=== PATIENT | female | born 1990 | race Caucasian/White ===

== ENCOUNTER 2018-08-08 00:46 | Emergency (ER) | payer SELFPAY ==
[2018-08-08 02:45] VITALS: BMI 29.2
[2018-08-08] MEDS ORDERED: DIPHTH,PERTUSS(ACELL),TET 0.5 ML DISP.SYRIN IM ONE ×2 (03:24→03:33)
[2018-08-08] MEDS ORDERED: CEFAZOLIN 1 GM/D5W 1 GM/50 ML BAG IVPB ONE (03:24)
--- NOTE | 2018-08-08 03:24 | PDOC ---
Attending Attestation - Resident Resident Name: Igor Arauz - ED Attending Attestation I have performed the following: I have examined & evaluated the patient, The case was reviewed & discussed with the resident, I agree w/resident's findings & plan - HPI HPI: 08/08/18 06:45 Pt cut her finger accidentally while she was cutting chicken last night. - Physicial Exam PE: 08/08/18 06:45 Agree with resident exam. - Medical Decision Making 08/08/18 04:37 We ran out of suture kits and pt is upset. She is upset that she has to wait. Pt doesn't want to get an IV for a dose of abx (she was cutting meat hours ago and cliced her finger.) Pt is awaiting suture kit to come from [facility]. 08/08/18 06:46 Finger closed with 3 sutures. She will return in 7-10 days for the removal of stitches; sooner for a wound check, or if the finger gets red and inflamed. 08/08/18 06:47 Keflex for prophylaxis.
[2018-08-08] MEDS ORDERED: CEFAZOLIN 1 GM/D5W 1 GM/50 ML BAG ONE (03:32)
--- NOTE | 2018-08-08 04:20 | PDOC ---
History of Present Illness <John Amaya - Last Filed: 08/08/18 05:56> - General History Source: Patient Exam Limitations: No Limitations - History of Present Illness Initial Comments: 08/08/18 04:14 28 yo female pmh DM type 1 and hypothyroidism presents to the ED after accidentally cutting her right index finger with a pair of kitchen scissors used to cut chicken around 1 am. Last Tetanus unknown. Homeostasis achieved with holding pressure. No nail bed involvement, denies weakness or sensory changes in the right hand but has pain with flexion at the DIP <Igor Arauz - Last Filed: 08/08/18 06:27> - General Chief Complaint: Injury Stated Complaint: INJURY,RT FINGER Time Seen by Provider: 08/08/18 02:50 Past History <John Amaya - Last Filed: 08/08/18 05:56> - Past Medical History Anemia: No Asthma: No Cancer: No Cardiac Disorders: No CVA: No COPD: No CHF: No Dementia: No Diabetes: Yes (IDDM DX 1999) GI Disorders: No Disorders: No HTN: No Hypercholesterolemia: No Liver Disease: No Seizures: No Thyroid Disease: Yes (HYPOTHROIDISM DX 2001) - Immunization History Immunization Up to Date: Yes - Suicide/Smoking/Psychosocial Hx Smoking Status: Yes Smoking History: Current some day smoker Have you smoked in the past 12 months: Yes Number of Cigarettes Smoked Daily: 12 Information on smoking cessation initiated: No 'Breaking Loose' booklet given: 01/23/12 Hx Alcohol Use: No Drug/Substance Use Hx: No Substance Use Type: Alcohol Hx Substance Use Treatment: No <Igor Arauz - Last Filed: 08/08/18 06:27> - Past Medical History Allergies/Adverse Reactions: Allergies Allergy/AdvReac Type Severity Reaction Status Date / Time codeine [Codeine] Allergy Severe HALLUCINATI Verified 08/08/18 03:09 ONS Home Medications: Ambulatory Orders Insulin Lispro [Humalog] 5 units SQ PRN PRN 12/16/11 Insulin NPH [Novolin N Vial -] 19 units SQ AM 12/16/11 Levothyroxine [Synthroid] 175 mcg PO DAILY 12/16/11 Multivitamins 1 tab PO DAILY 12/16/11 Pyridoxine HCl [Vitamin B6] 100 mg PO DAILY 12/16/11 Vit B12/Pyridoxine/Thiamine [Pv Neuro [place] Tablet] 1 tab PO DAILY 12/16/11 Vitamin C 1 PO DAILY 12/16/11 Vitamin E 1 tab PO DAILY 12/16/11 Insulin NPH [Novolin N Vial] 18 units SQ HS 01/23/12 Cephalexin [Keflex] 500 mg PO BID 5 Days #10 capsule 08/08/18 Review of Systems - Review of Systems Constitutional: No: Chills, Fever Integumentary: Yes: Lesions (right index finger) Neurological: No: Numbness, Paresthesia, Weakness <Igor Arauz - Last Filed: 08/08/18 06:27> *Physical Exam - Vital Signs Last Vital Signs Temp Pulse Resp BP Pulse Ox 97.3 F L 70 20 110/80 98 08/08/18 04:58 08/08/18 04:58 08/08/18 04:58 08/08/18 04:58 08/08/18 01:10 <John Amaya - Last Filed: 08/08/18 05:56> - Vital Signs Last Vital Signs Temp Pulse Resp BP Pulse Ox 98.5 F 100 H 17 111/73 98 08/08/18 01:10 08/08/18 01:10 08/08/18 01:10 08/08/18 01:10 08/08/18 01:10 - Physical Exam General Appearance: Yes: Nourished, Appropriately Dressed. No: Apparent Distress HEENT: positive: EOMI Comments:: 08/08/18 04:21 equal radial pulses Extremity: positive: Normal Capillary Refill (in the affected right index finger ) Integumentary: positive: Normal Color, Dry, Warm, Other (3 cm laceration to the right index finger on the lateral side) <Igor Arauz - Last Filed: 08/08/18 06:27> Moderate Sedation - Procedure Monitoring Vital Signs: Procedure Monitoring Vital Signs Temperature 97.3 F L 08/08/18 04:58 Pulse Rate 70 08/08/18 04:58 Respiratory Rate 20 08/08/18 04:58 Blood Pressure 110/80 08/08/18 04:58 O2 Sat by Pulse Oximetry (%) 98 08/08/18 01:10 <John Amaya - Last Filed: 08/08/18 05:56> - Procedure Monitoring Vital Signs: Procedure Monitoring Vital Signs Temperature 98.5 F 08/08/18 01:10 Pulse Rate 100 H 08/08/18 01:10 Respiratory Rate 17 08/08/18 01:10 Blood Pressure 111/73 08/08/18 01:10 O2 Sat by Pulse Oximetry (%) 98 08/08/18 01:10 <Igor Arauz - Last Filed: 08/08/18 06:27> Procedures - Laceration/Wound Repair Right Lateral Hand 2nd digit Wound Length: 2.6 to 5.0 cm Wound Explored: clean, no foreign body present Wound's Depth, Shape: superficial, linear Irrigated w/ Saline: Yes Anesthesia: 1% Lidocaine Amount of Anesthetic (ccs): 3 Wound Debrided: minimal Wound Repaired With: Sutures Suture Size/Type: 5:0 Number of Sutures: 3 <Igor Arauz - Last Filed: 08/08/18 06:27> ED Treatment Course - Medications Given in the ED: ED Medications Discontinued Medications Generic Name Dose Route Start Last Admin Trade Name Freq PRN Reason Stop Dose Admin Diphtheria/Tetanus/Acell Pertussis 0.5 ml 08/08/18 03:24 08/08/18 03:53 Boostrix - IM 08/08/18 03:25 0.5 ml .ONCE ONE Administration Cefazolin Sodium 1 gm in 50 mls @ 100 mls/hr 08/08/18 03:24 08/08/18 03:53 Ancef 1 Gm Premixed Ivpb - IVPB 08/08/18 03:53 100 mls/hr ONCE ONE Administration Lidocaine HCl 5 ml 08/08/18 05:20 08/08/18 05:42 Xylocaine 1% SQ 08/08/18 05:21 5 ml ONCE ONE Administration <John Amaya - Last Filed: 08/08/18 05:56> - Medications Given in the ED: ED Medications Discontinued Medications Generic Name Dose Route Start Last Admin Trade Name Freq PRN Reason Stop Dose Admin Diphtheria/Tetanus/Acell Pertussis 0.5 ml 08/08/18 03:24 08/08/18 03:53 Boostrix - IM 08/08/18 03:25 0.5 ml .ONCE ONE Administration Cefazolin Sodium 1 gm in 50 mls @ 100 mls/hr 08/08/18 03:24 08/08/18 03:53 Ancef 1 Gm Premixed Ivpb - IVPB 08/08/18 03:53 100 mls/hr ONCE ONE Administration <Igor Arauz - Last Filed: 08/08/18 06:27> Medical Decision Making - Medical Decision Making 08/08/18 06:14 28 yo female presents to the ED after accidentally cutting it. Pt has DM type 1 Homeostasis achieved with light compression with gauze Laceration 3 cm in length, linear and superficial 3 ml of 1% epi used for digital block, pt tolerated procedure well, no complications dose of antibiotics given IV along with 5 days of Keflex sent to pharmacy Pt agrees and understands plan. DC home with PCP follow up and 5-9 days for suture removal <Igor Arauz - Last Filed: 08/08/18 06:27> *DC/Admit/Observation/Transfer - Discharge Dispostion Decision to Admit order: No <John Amaya - Last Filed: 08/08/18 05:56> <Igor Arauz - Last Filed: 08/08/18 06:27> Diagnosis at time of Disposition: Finger laceration Qualifiers: Encounter type: initial encounter Finger: index finger Damage to nail status: without damage Foreign body presence: without foreign body Laterality: right Qualified Code(s): S61.210A - Laceration without foreign body of right index finger without damage to nail, initial encounter - Discharge Dispostion Disposition: HOME - Prescriptions Prescriptions: Cephalexin [Keflex] 500 mg PO BID 5 Days #10 capsule - Referrals Referrals: ANDRES DYER [Primary Care Provider] - - Patient Instructions Printed Discharge Instructions: DI for Laceration Repair -- Simple Additional Instructions: Keep the incision clean and dry for 24 hours. After 24 hours, you may allow the soap and water to rinse off your incision. Avoid direct pressure of the water to the incision. Pat the incision dry with a clean clothe. Apply a small amount of bacitracin onto the incision. Cover the incision loosely with a bandaid. Take tylenol/motrin as needed for pain. Follow up with your physician or the ER in 48 hours for a wound check. Return to the ER if you notice red streaks, increase redness/swelling/severe pain to the incision. Suture removal in 9 days. - Post Discharge Activity
[2018-08-08 04:59] VITALS: BP 110/80; PULSE 70; TEMP 97.3
[2018-08-08] MEDS ORDERED: LIDOCAINE HCL 1%, 10 MG/ML (50 mL VIAL) SQ ONE (05:20)
[2018-08-08] MEDS ORDERED: LIDOCAINE HCL 1%, 10 MG/ML (20ML VIAL) ONE (05:25)
[2018-08-08] MEDS ORDERED: BACITRACIN 0.9 GM PACKET ONE (06:11)
== END 2018-08-08 06:05 | disposition home or self-care (01) ==
LOC: JER 00:46
PROC: 0HQFXZZ Repair Right Hand Skin, External Approach (ICD-10-PCS; principal; 2018-08-08)
PROC: 3E0234Z Introduction of Serum, Toxoid and Vaccine into Muscle, Percutaneous Approach (ICD-10-PCS; 2018-08-08)
PROC: 3E03329 Introduction of Other Anti-infective into Peripheral Vein, Percutaneous Approach (ICD-10-PCS; 2018-08-08)
DX: S61.210A Laceration without foreign body of right index finger without damage to nail, initial encounter (principal); W27.2XXA Contact with scissors, initial encounter; Y93.G1 Activity, food preparation and clean up; Y92.030 Kitchen in apartment as the place of occurrence of the external cause; Y99.8 Other external cause status
CPT/HCPCS: 90715; 99283-25